=== PATIENT | male | born 1980 | race Two or more races ===

== ENCOUNTER 2021-09-18 10:36 | Emergency (ER) | payer OTHER ==
[~2021-09-18] VITALS: Ht 180.3 cm; Wt 104.3 kg
[~2021-09-18 10:36] MED LIST: XANAX2 MG
[2021-09-18] MEDS ORDERED: CLONAZEPAM0.25 MG (10:44)
[2021-09-18] MEDS ORDERED: LOSARTAN POTASS25 MG (10:44)
== END 2021-09-18 14:46 | disposition home or self-care (01) ==
LOC: ER 10:36
DX: S20.219A Contusion of unspecified front wall of thorax, initial encounter (principal); W18.39XA Other fall on same level, initial encounter; Y93.K1 Activity, walking an animal; Y92.89 Other specified places as the place of occurrence of the external cause; Y99.9 Unspecified external cause status; I10 Essential (primary) hypertension

== ENCOUNTER 2021-09-20 08:11 | Emergency (ER) | payer OTHER ==
[~2021-09-20] VITALS: Ht 180.3 cm; Wt 104.3 kg
[~2021-09-20 08:11] MED LIST changes: +CLONAZEPAM0.25 MG; +LOSARTAN POTASS25 MG
== END 2021-09-20 12:05 | disposition home or self-care (01) ==
LOC: ER 08:11
DX: R07.89 Other chest pain (principal)